=== PATIENT | female | born 1990 | race Caucasian/White ===

== ENCOUNTER 2020-06-21 08:25 | Emergency (ER) | payer OTHER ==
[~2020-06-21 08:25] MED LIST: NORCO 5-325 TA1 EACH PO; ZOFRAN4 MG PO
[2020-06-21 09:41] LABS: BASOPHIL 0.8 % (0-2); HCT 37.7 % (37.0-47.0); HGB 12.8 g/dl (12.5-16.0); LYMPHOCYTE 31.7 % (15-48); MCH 33.5 pg (25.0-31.0); MCV 98.7 fL (78.0-100.0); MONOCYTE 6.1 % (0-12); MPV 9.8 fL (6.0-9.5); NEUTROPHIL 58.2 % (41-80); NRBC 0; PLT 227 K/uL (150-400); RBC 3.82 M/uL (4.20-5.40); RDW 11.3 % (11.5-14.0); WBC 5.1 K/uL (4.0-10.5)
[2020-06-21 09:41] LABS: BILIRUBIN NEGATIVE (NEGATIVE); BLOOD NEGATIVE Ery/uL (NEGATIVE); CLARITY CLEAR (CLEAR); COLOR YELLOW (YELLOW); GLUCOSE (U) NORMAL (NORMAL); LEUKOCYTES NEGATIVE Leu/uL (NEGATIVE); NITRITE NEGATIVE (NEGATIVE); PROTEIN NEGATIVE (NEGATIVE); SPECIFIC GRAVITY 1.025 (1.001-1.030); UROBILINOGEN 0.2 mg/dL (0.2-1.0)
[2020-06-21 10:15] LABS: ALBUMIN 3.6 g/dL (3.4-5.0); BILIRUBIN - TOTAL 0.8 mg/dL (0.2-1.0); CREATININE 0.5 mg/dL (0.51-0.95); GLOBULIN (CALCULATION) 3.7 g/dL; POTASSIUM 3.8 mmol/L (3.5-5.1); TOTAL PROTEIN 7.3 g/dL (6.4-8.2)
[2020-06-21] MEDS ORDERED: ETODOLAC500 MG PO (11:44)
== END 2020-06-21 12:07 | disposition home or self-care (01) ==
LOC: FER 08:25
PROVIDERS: Emergency Medicine
DX: R07.81 Pleurodynia (principal); R10.9 Unspecified abdominal pain; E66.3 Overweight; Z90.49 Acquired absence of other specified parts of digestive tract; Z85.850 Personal history of malignant neoplasm of thyroid
CPT/HCPCS: 36415; 80053; 81003; 83690; 85025; Q9967